=== PATIENT | female | born 1950 | race African-American/Black ===

== ENCOUNTER 2018-08-14 09:35 | Emergency (ER) | payer OTHER ==
[~2018-08-14] VITALS: Ht 160 cm; Wt 83.9 kg
--- OUTSIDE RECORDS SUMMARY | 2018-08-14 09:38 | XMS REPORT ---
Author Author [facility] Address Unknown Phone Unavailable Care Team Providers Care Will Call Order Clerk Name Role Phone Unavailable Unavailable Problems This patient has no known problems. Allergies, Adverse Reactions, Alerts This patient has no known allergies or adverse reactions. Medications This patient has no known medications. Results Test Description Test Time Test Comments Text Results Atomic Results Result Comments SCR MAMM BILATERAL CAT CAD DIGITAL 2018-08-04 15:55:44 - SCR MAMM BILATERAL CAT CAD DIGITALBILATERAL DIGITAL SCREENING MAMMOGRAM 3D/2D WITH CAD: 07/24/2018CLINICAL: Asymptomatic. Digital breast tomosynthesis was performed in addition to routine CC and MLO views. Current mammographic images were evaluated by either a [employer] M-Vu or a [employer] ImageChecker CAD (computer aided detection system). Comparison is made to exams dated 09/01/2014 mammogram and 07/07/2013 mammogram - [facility]. The tissue of both breasts is predominantly fatty. No suspicious mass, architectural distortion, malignant type calcification, or lymph node abnormality detected. Breast architecture is stable compared to prior exams.IMPRESSION: NEGATIVEThere is no mammographic evidence of malignancy. Resume annual screening mammography in one year. Gerry Jaramillo M.D. ss/katarina:08/04/2018 15:55:44 Chief Operations Officer: Paula DIAZ, [facility]-FWletter sent: BIRADS 1-2 Normal Mammogram BI-RADS: 1 Negative
--- OUTSIDE RECORDS SUMMARY | 2018-08-14 09:39 | XMS REPORT | Summary of Care ---
Author Author Regine Addison Organization Unknown Address Unknown Phone Unavailable Care Team Providers Care Mat Tester Name Role Phone INDIO CANDELARIO M.D. Unavailable Unavailable SUMMER HOUGH M.D. Unavailable Unavailable Regine Addison Unavailable Unavailable Summer Hough MD Unavailable Unavailable INDIO CANDELARIO MD Unavailable Unavailable Unavailable Unavailable Functional Status Name Dates Details Functional status health issues are not documented Status: Name Dates Details Cognitive status health issues are not documented Status: Problems Name Dates Details Non-smoker (V49.89, Z78.9) Status: Active Encounter to establish care (V65.8, Z76.89) Status: Active Influenza vaccine refused (V64.06, Z28.21) Status: Active High globulin level Status: Active Breast cancer screening (V76.10, Z12.31) Status: Active Colon cancer screening (V76.51, Z12.11) Status: Active Proteinuria (791.0, R80.9) Status: Active Diabetes mellitus (250.00, E11.9) Status: Active Benign essential hypertension (401.1, I10) Status: Active Hyperlipidemia (272.4, E78.5) Status: Active Heart murmur (785.2, R01.1) Status: Active Elevated AST (SGOT) (790.4, R74.0) Status: Active Hepatitis-C (070.70, B19.20) Status: Active Medications Name Dates Details Lisinopril 10 MG Oral Tablet Take 1 tablet twice a day Quantity: 180 SUMMER HOUGH M.D. * Start : 10-Mar-2018 Active AmLODIPine Besylate 10 MG Oral Tablet TAKE 1 TABLET DAILY * Quantity: 90 Refills: 1 INDIO CANDELARIO M.D. * Start : 27-Jan-2018 Active MetFORMIN HCl - 1000 MG Oral Tablet Take 1 tablet twice a day * Quantity: 180 Refills: 1 SUMMER HOUGH M.D. * Start : 10-Mar-2018 Active Simvastatin 20 MG Oral Tablet TAKE 1 TABLET AT BEDTIME * Quantity: 90 Refills: 3 SUMMER HOUGH M.D. * Start : 10-Mar-2018 Active Aspirin 81 MG TABS TAKE 1 TABLET DAILY. * Refills: 0 Active Calcium + D TABS TAKE 1 TABLET DAILY. * Refills: 0 Active Glimepiride 4 MG Oral Tablet TAKE 1 TABLET EVERY DAY WITH BREAKFAST * Quantity: 90 Refills: 3 MARIBEL Kumar SUMMER * Start : 25-Feb-2018 Active Allergies and Adverse Reactions Name Dates Details Lipitor (Allergy) Status: Active MetFORMIN HCl ER (MOD) TB24 (Allergy) Reaction: Itching Status: Active Past Medical History Name Dates Details Benign essential hypertension (401.1, I10) Status: Active Diabetes mellitus (250.00, E11.9) Status: Active History of Vitamin D deficiency (268.9, E55.9) Status: Resolved Procedures Procedure Dates Details [QH] HEPATITIS C VIRAL RNA, QUANTITATIVE bDNA Date: 03-Mar-2018 [N] 2D Echo complete, with Doppler [id number] Date: 25-Feb-2018 Immunization Name Dates Details Immunizations not documented Family History Name Dates Details Family history of diabetes mellitus (V18.0, Z83.3) Status: Active Name Dates Details Family history of diabetes mellitus (V18.0, Z83.3) Status: Active Social History Name Dates Details Unknown if ever smoked Vital Signs Date Test Result Details [id number]-Ofm-[id number]:20 Physical Findings 0 Status: Comments: PHQ-9 Adult Depression Screening 25-Feb-20189:57 BP Systolic 131 mm[Hg] Status: BP Diastolic 79 mm[Hg] Status: Height 61.75 in Status: Weight 206.25 lb Status: Body Mass Index Calculated 38.03 kg/m2 Status: Body Surface Area Calculated 1.93 m2 Status: Temperature 98 f Status: Heart Rate 80 /min Status: Results Date Description Value Details [id number]-Rer-[id number]:29 [QLH] HEMOGLOBIN A1c Hemoglobin A1c 6.0 % (Above high threshold) Range: <=5.6 [id number]-Qmu-597890:29 [QLH] CMP W/EGFR Sodium Level 139 {mEq/l} Range: 135-145 Potassium Level 4.4 {mEq/l} Range: 3.5-5.1 Chloride Level 103 {mEq/l} Range: 95-109 Carbon Dioxide 31 {mEq/l} Range: 24-32 AGAP 9.4 {mEq/l} (Below low threshold) Range: 10.0-20.0 Glucose Lvl 99 mg/dl Range: 70-99 Comments: Adult reference range values reflect the clinical guidelinesof the [place] [employer]. Creatinine Lvl 1.00 mg/dl Range: 0.50-1.40 Blood Urea Nitrogen 18 mg/dl Range: 7-22 BUN/Creatinine Ratio 18 Range: 6-25 Total Protein 7.9 g/dl Range: 6.4-8.4 Albumin Lvl 3.6 g/dl Range: 3.5-5.0 Globulin 4.3 g/dl (Above high threshold) Range: 2.7-4.2 A/G Ratio 0.8 Range: 0.7-1.6 Calcium Level Total 9.9 mg/dl Range: 8.5-10.5 ALT 51 u/l Range: 0-65 AST 48 u/l (Above high threshold) Range: 0-37 Bili Total 0.4 mg/dl Range: 0.2-1.3 Alk Phos 136 u/l Range: 39-136 eGFR 58 {ML/MIN/1.7} Comments: The eGFR is calculated using the CKD-EPI formula. In most young, healthyindividuals the eGFR will be >90 mL/min/1.73m2. The eGFR declines with age. AneGFR of 60-89 may be normal in some populations, particularly the elderly, forwhom the CKD-EPI formula has not been extensively validated. Use of the eGFR isnot recommended in the following populations:Individuals with unstable creatinine concentrations, including patients and those with serious co-morbid conditions.Patients with extremes in muscle mass or diet.The data above are obtained from the National Kidney Disease Education Program(NKDEP) which additionally recommends that when the eGFR is used in patientswith extremes of body mass index for purposes of drug dosing, the eGFR shouldbe multiplied by the estimated BMI. 3-[id number]:29 [QL] LIPID PANEL Chol 217 mg/dl (Above high threshold) Range: <=199 Trig 117 mg/dl Range: <=149 HDL Cholesterol 91 mg/dl Range: >=61 CHD Risk 2.38 (Below low threshold) Range: 3.90-5.80 LDL 103 mg/dl (Above high threshold) Range: <=99 VLDL 23 8-[id number]:29 [QLH] HEPATITIS PANEL Hepatitis B Surface Antigen Negative Range: Negative Hepatitis B Core IgM Negative Range: Negative Hepatitis A IgM Negative Range: Negative Hepatitis C Antibody Positive (Abnormal) 61-Xyx-[id number]:07 US Abdomen complete [id number] Abdomen complete US SEE NOTES Comments: PROCEDURE: ABDOMINAL ULTRASOUNDINDICATION:R74.0 Nonspecific elevation of levels of transaminase and lactic aciddehydrogenase [LDH] - ABNORMAL LABS. COMPARISON: None.FINDINGS:LIVER:The liver is normal in size, contour and morphology with normal parenchymalechogenicity.Doppler demonstrates a normal monophasic hepatopedal waveform within the mainportal vein.GALLBLADDER:No gallstones, sludge, pericholecystic fluid or wall thickening.BILE DUCTS:No significant intrahepatic or extrahepatic biliary ductal dilation isapparent.The CBD measures 4 mm.PANCREAS:The visualized pancreas is unremarkable.SPLEEN:The spleen is normal.KIDNEYS:Normal size, contour and echogenicity without hydronephrosis.AORTA AND INFERIOR VENA CAVA:Visualized portions of the aorta and IVC appear normal.Additional comments: None.IMPRE SSION:1. No significant abnormality.SL: [id number]--Vloy by: Lazaro Keller MDDictated Date/time: 03/14/18 12:57Electronically Signed by: Lazaro Keller MD 03/14/1812:58FINAL REPORT [id number] [H] Hepatitis C Virus RNA by PCR Quant HCV RNA VirLoad Not Detected HCV RNA Log10 <1.2 {IU/ml} Comments: No Target HCV RNA detected will be reported as "HCV RNA Not Detected". Anegative result does not rule out the possibility of the presence of the HCVvirus. The specimen may contain HCV below the detectab le limits of the assayHCV RNA detected below 15 IU/mL will be resulted as "HCV RNA Detected, Lessthan 15 HCV RNA IU/mL."HCV version 2.0 quantitative assay is performed using the FDA approved [employer] AmpliPrep/JANKI TaqMan HCV real-time RT-PCR IVD system to detect the5-untranslated region of the HCV genome in genotypes 1 through 6 utilizing adual probe approach. The assay is intended for use as an aid in the managementof HCV-infected individuals undergoing anti-viral therapy and results are notintended to be used as the individual means for clinical diagnosis or patientmanagement. Performance characteristics have been verified by the [facility]. The [facility] is authorized under the Clinical Laboratory Improvement Amendmentsof 1988 (CLIA-88) to perform high complexity testing. Plan of Care Name Dates Details Planned Observations Planned Goals not documented Instructions Name Dates Details Instructions not documented Encounters Appointment; INDIO CANDELARIO M.D. Encounter Diagnosis: Problem not documented On: 26-Jul-2016 9:45 Appointment; INDIO CANDELARIO M.D. Encounter Diagnosis: Problem not documented On: 23-Aug-2016 9:45 Appointment; INDIO CANDELARIO M.D. Encounter Diagnosis: Problem not documented On: 16-Oct-2016 15:15 Appointment; INDIO CANDELARIO M.D. Encounter Diagnosis: Problem not documented On: 11-Mar-2017 10:15 Appointment; INDIO CANDELARIO M.D. Encounter Diagnosis: Problem not documented On: 17-Jun-2017 10:15 Appointment; SUMMER HOUGH M.D. Encounter Diagnosis: Problem not documented On: 25-Feb-2018 9:40
[2018-08-14] MEDS ORDERED: TRAMADOL HCL 50 MG TAB PO ONE (10:30)
--- NOTE | 2018-08-14 12:03 | Diagnostic Imaging Report ---
EXAMINATION: RIBS UNILAT W/CXR INDICATION: Rib pain, evaluate for fracture. COMPARISON: None FINDINGS: TUBES and LINES: None. LUNGS: Lungs are well inflated. Patchy bibasilar opacities, left greater than right. No evidence of lobar consolidation or pulmonary edema. There is central vascular congestion. PLEURA: No pleural effusion or pneumothorax. HEART AND MEDIASTINUM: The cardiac silhouette is unremarkable. There is mild prominence of bilateral main pulmonary arteries. BONES AND SOFT TISSUES: No acute osseous abnormality. Dedicated radiographs of the ribs demonstrate no evidence of displaced fracture. UPPER ABDOMEN: No free air under the diaphragm. IMPRESSION: No evidence of displaced rib fracture or pneumothorax. Prominent bilateral main pulmonary arteries may reflect only arterial hypertension. Central vascular congestion without evidence of pulmonary edema. Patchy bibasilar opacities, likely atelectasis. Signed by: Dr. Gil Martell MD on 08/14/2018 12:00 PM
== END 2018-08-14 13:54 | disposition home or self-care (01) ==
LOC: ER 09:35
DX: S20.212A Contusion of left front wall of thorax, initial encounter (principal); S90.111A Contusion of right great toe without damage to nail, initial encounter; V73.5XXA Driver of bus injured in collision with car, pick-up truck or van in traffic accident, initial encounter; Y92.488 Other paved roadways as the place of occurrence of the external cause; I10 Essential (primary) hypertension; E11.9 Type 2 diabetes mellitus without complications
CPT/HCPCS: 71101; 99283